=== PATIENT | male | born 1950 ===

== ENCOUNTER 2017-12-05 07:04 | Outpatient (CLI) | payer OTHER | END 2017-12-05 07:16 | disposition home or self-care (01) | LOC: LAB 07:04 | DX: N40.1 Benign prostatic hyperplasia with lower urinary tract symptoms (principal); B18.2 Chronic viral hepatitis C; R94.5 Abnormal results of liver function studies; E03.0 Congenital hypothyroidism with diffuse goiter; R73.09 Other abnormal glucose; I10 Essential (primary) hypertension; E78.4 Other hyperlipidemia ==

== ENCOUNTER 2018-06-17 07:05 | Outpatient (CLI) | payer OTHER | END 2018-06-17 07:14 | disposition home or self-care (01) | LOC: LAB 07:05 | DX: R73.01 Impaired fasting glucose (principal); I10 Essential (primary) hypertension; E78.49 Other hyperlipidemia; R94.5 Abnormal results of liver function studies; B18.2 Chronic viral hepatitis C ==

== ENCOUNTER → 2019-01-17 06:53 | Outpatient (CLI) | payer OTHER | END | disposition home or self-care (01) | LOC: LAB 06:53 | DX: E11.9 Type 2 diabetes mellitus without complications (principal); I10 Essential (primary) hypertension; E78.4 Other hyperlipidemia; N40.1 Benign prostatic hyperplasia with lower urinary tract symptoms ==

== ENCOUNTER 2019-06-25 06:38 | Outpatient (CLI) | payer OTHER | END 2019-06-25 06:42 | disposition home or self-care (01) | LOC: LAB 06:38 | DX: E03.8 Other specified hypothyroidism (principal); E78.49 Other hyperlipidemia; R73.09 Other abnormal glucose; I10 Essential (primary) hypertension ==

== ENCOUNTER 2019-12-30 06:10 | Outpatient (CLI) | payer OTHER | END 2019-12-30 06:16 | disposition home or self-care (01) | LOC: LAB 06:10 | PROVIDERS: ATTEND Surgery | DX: K40.20 Bilateral inguinal hernia, without obstruction or gangrene, not specified as recurrent (principal); K70.2 Alcoholic fibrosis and sclerosis of liver ==

== ENCOUNTER 2019-12-30 08:30 | Outpatient (CLI) | payer OTHER | END 2019-12-30 08:36 | disposition home or self-care (01) | LOC: TOM 08:30 | PROVIDERS: ATTEND Surgery | DX: K40.20 Bilateral inguinal hernia, without obstruction or gangrene, not specified as recurrent (principal) ==